=== PATIENT | female | born 1950 | race Two or more races ===

== ENCOUNTER 2017-08-25 07:57 | Inpatient (IN) | payer OTHER, MEDICARE ==
[~2017-08-25 07:57] MED LIST: CEFAZOLIN 2 GM/50 ML (PMX) 50 ML (FOR WT < 120 KG) IVPB; ETOMIDATE 20 MG INJ; TRANEXAMIC ACID 1,000 MG in D5W 100 ML AT CLOSURE X1 IVPB
[2017-08-25] MEDS ORDERED: PROPOFOL 20 ML (08:11)
[2017-08-25] MEDS ORDERED: PROPOFOL 100 ML (08:11)
[2017-08-25] MEDS ORDERED: CEFAZOLIN 1 GM INJ (08:11)
[2017-08-25] MEDS ORDERED: MIDAZOLAM 1 MG/ML 2 ML INJ (08:11)
[2017-08-25] MEDS ORDERED: FENTAnyl 50 MCG/ML VIAL (08:11)
[2017-08-25] MEDS ORDERED: DEXAMETHASONE 4 MG/ML 1 ML INJ (08:11)
[2017-08-25] MEDS ORDERED: NEOSTIGMINE 3 MG/3 ML SYRINGE (08:11)
[2017-08-25] MEDS ORDERED: GLYCOPYRROLATE 0.4 MG INJ (08:11)
[2017-08-25] MEDS ORDERED: ROCURONIUM 50 MG INJ (08:11)
[2017-08-25] MEDS ORDERED: ONDANSETRON 4 MG INJ (08:11)
[2017-08-25] MEDS ORDERED: morphine SULFATE/PF (10 MG/10 ML) INJ (08:12)
[2017-08-25] MEDS ORDERED: ROPIVACAINE 0.5 % 30 ML VIAL (08:12)
[2017-08-25] MEDS ORDERED: SUGAMMADEX SODIUM 200 MG/2 ML VIAL IV (08:22)
[2017-08-25 09:50] LABS: INR 1.01; PROTIME 13.4 Sec (11.9-14.9)
[2017-08-25 09:51] LABS: PARTIAL THROMBOPLASTIN TIME 28.4 Sec (25.0-35.0)
[2017-08-25] MEDS: TRANEXAMIC ACID 1,000 MG in D5W 100 ML AT INCISION X1 IVPB ×2 (10:17→10:48)
[2017-08-25] MEDS: BACITRACIN 50000 UNITS INJ (10:46)
[2017-08-25] MEDS: POLYMYXIN B 500000 UNIT INJ (10:46)
[2017-08-25] MEDS: POLYMYXIN/BACITRACIN 1L IRRIG (10:46)
[2017-08-25] MEDS ORDERED: HYDROmorphONE (0.2 MG/ML) 10ML SYG IV ×3 (11:00)
[2017-08-25] MEDS ORDERED: LABETALOL HCL 20MG INJ IV (11:00)
[2017-08-25] MEDS ORDERED: NALBUPHINE HCL (10 MG/1 ML) INJ IV (11:00)
[2017-08-25] MEDS ORDERED: MEPERIDINE 25 MG INJ IV (11:00)
[2017-08-25] MEDS ORDERED: KETOROLAC 15 MG INJ IV (11:00)
[2017-08-25] MEDS ORDERED: DIPHENHYDRAMINE 50 MG INJ IV ×3 (11:00→12:30)
[2017-08-25] MEDS ORDERED: MIDAZOLAM 1 MG/ML 2 ML INJ IV (11:00)
[2017-08-25] MEDS ORDERED: TRIMETHOBENZAMIDE 100 MG/ML VIAL IM ×3 (11:00→12:30)
[2017-08-25] MEDS ORDERED: EPHEDrine SULFATE 50 MG/5 ML SYG IV (11:00)
[2017-08-25] MEDS ORDERED: OXYCODONE/ACETAMINOPHEN (5/325) TAB PO ×2 (11:00)
[2017-08-25] MEDS ORDERED: ONDANSETRON 4 MG INJ IV ×2 (11:00)
[2017-08-25] MEDS ORDERED: HYDROmorphONE 0.5 MG/0.5 ML SYG IV ×2 (11:00)
[2017-08-25] MEDS ORDERED: IPRATROPIUM (NEB) 0.5 MG/2.5 ML AMP HHN (11:00)
[2017-08-25] MEDS ORDERED: NALOXONE (0.4 MG/ML) INJ IV ×2 (11:00→12:30)
[2017-08-25] MEDS ORDERED: FENTAnyl 50 MCG/ML VIAL IV ×3 (11:00)
[2017-08-25] MEDS ORDERED: ALBUTEROL 0.083% (NEB) 2.5 MG/3 ML AMP HHN (11:00)
[2017-08-25] MEDS ORDERED: hydrALAzine 20 MG INJ IV (11:00)
[2017-08-25] MEDS ORDERED: NA PHOSPHATE/BIPHOS 133 ML ENEMA PR (12:30)
[2017-08-25] MEDS ORDERED: ZOLPIDEM 5 MG TAB PO (12:30)
[2017-08-25] MEDS ORDERED: SENNA/DOCUSATE NA (8.6MG/50MG) TAB PO (12:30)
[2017-08-25] MEDS ORDERED: BISACODYL 10 MG SUPP PR (12:30)
[2017-08-25] MEDS ORDERED: BETHANECHOL 25 MG TAB PO (12:30)
[2017-08-25] MEDS ORDERED: oxyCODONE 5 MG TAB PO (12:30)
[2017-08-25] MEDS ORDERED: MAGNESIUM HYDROXIDE 30ML CUP PO (12:30)
[2017-08-25] MEDS: ONDANSETRON 4 MG INJ IV ×2 (13:50→18:30)
[2017-08-25] MEDS: CEFAZOLIN 1 GM/50 ML (PMX) 50 ML IVPB ×2 (13:50→20:49)
[2017-08-25] MEDS: SOD CHLORIDE 0.9% 1,000 ML IV ×2 (13:51→23:04)
[2017-08-25] MEDS: ASPIRIN (EC) 325 MG TAB PO (13:51)
[2017-08-25] MEDS: DOCUSATE SODIUM 100 MG CAP PO (13:51)
[2017-08-25] MEDS ORDERED: metroNIDAZOLE 500 MG/NS (PMX) 0 ML IVPB (14:02)
[2017-08-25] MEDS ORDERED: GLUCOSE GEL 15 GRAM TUBE BUCCAL (16:00)
[2017-08-25] MEDS ORDERED: GLUCOSE GEL 15 GRAM TUBE PO ×2 (16:00)
[2017-08-25] MEDS ORDERED: GLUCAGON 1 MG INJ IM (16:00)
[2017-08-25] MEDS ORDERED: DEXTROSE 50% 50 ML SYRINGE IV ×2 (16:00)
[2017-08-25] MEDS: metFORMIN 500 MG TAB PO (17:47)
[2017-08-25] MEDS: INSULIN ASPART [NOVOLOG] 3 ML PEN SC ×2 (18:46→21:12)
[2017-08-25] MEDS: CELECOXIB 100 MG CAP PO (20:51)
[2017-08-25] MEDS: GABAPENTIN 100 MG CAP PO (20:51)
[2017-08-25] MEDS: INSULIN GLARGINE [LANtus] 3 ML PEN SC (21:11)
[2017-08-26] MEDS: ONDANSETRON 4 MG INJ IV ×2 (00:42→06:03)
[2017-08-26] MEDS: ACCU-CHEK XX (01:44)
[2017-08-26] MEDS ORDERED: ACCU-CHEK XX (02:00)
[2017-08-26] MEDS: CEFAZOLIN 1 GM/50 ML (PMX) 50 ML IVPB (04:20)
[2017-08-26 05:51] LABS: ADD MAN DIFF? NO
[2017-08-26 05:59] LABS: WHITE BLOOD COUNT 6.7 10^3/ul (4.8-10.8)
[2017-08-26 05:59] LABS: BASOPHILS % 0.3 % (0.0-2.0); EOSINOPHILS % 0.3 % (0.0-7.0); HEMATOCRIT 31.5 % (37.0-47.0); HEMOGLOBIN 9.7 g/dl (12.0-16.0); LYMPHOCYTES # 1.5 10^3/ul (0.8-2.9); LYMPHOCYTES % 22.5 % (15.0-51.0); MEAN CORPUSCULAR HEMOGLOBIN 24.8 pg (29.0-33.0); MEAN CORPUSCULAR HGB CONC 30.8 g/dl (32.0-37.0); MEAN CORPUSCULAR VOLUME 80.6 fl (82.0-101.0); MEAN PLATELET VOLUME 11.4 fl (7.4-10.4); MONOCYTE # 0.8 10^3/ul (0.3-0.9); MONOCYTES % 11.8 % (0.0-11.0); NEUTROPHIL # 4.3 10^3/ul (1.6-7.5); PLATELET COUNT 231 10^3/UL (140-415); RED BLOOD COUNT 3.91 10^6/ul (4.20-5.40); RED CELL DISTRIBUTION WIDTH 17.8 % (11.5-14.5)
[2017-08-26 06:44] LABS: ANION GAP 13 (8-16); BLOOD UREA NITROGEN 17 mg/dl (7-20); CALCIUM 8.4 mg/dl (8.4-10.2); CARBON DIOXIDE 26 mmol/L (21-31); CHLORIDE 107 mmol/L (97-110); CREATININE 0.63 mg/dl (0.44-1.00); GLUCOSE 191 mg/dl (70-220); POTASSIUM 4.3 mmol/L (3.5-5.1); SODIUM 142 mmol/L (135-144)
[2017-08-26 07:48] LABS: ALANINE AMINOTRANSFERASE 25 IU/L (13-69); ALBUMIN 2.9 g/dl (3.3-4.9); ALKALINE PHOSPHATASE 52 IU/L (42-121); ASPARTATE AMINO TRANSFERASE 24 IU/L (15-46); MAGNESIUM 1.5 mg/dl (1.7-2.5); TOTAL PROTEIN 5.9 g/dl (6.1-8.1)
[2017-08-26] MEDS: INSULIN ASPART [NOVOLOG] 3 ML PEN SC ×4 (07:50→21:03)
[2017-08-26 08:18] LABS: THYROID STIMULATING HORMONE 0.871 MIU/L (0.465-4.680)
[2017-08-26] MEDS: CELECOXIB 100 MG CAP PO ×2 (09:37→20:54)
[2017-08-26] MEDS: DOCUSATE SODIUM 100 MG CAP PO ×2 (09:37→20:54)
[2017-08-26] MEDS: ASPIRIN (EC) 325 MG TAB PO (09:37)
[2017-08-26] MEDS: GABAPENTIN 100 MG CAP PO ×2 (09:37→20:54)
[2017-08-26] MEDS: metFORMIN 500 MG TAB PO ×2 (09:38→17:52)
[2017-08-26] MEDS: FERROUS FUMARATE (SR) TAB PO ×2 (09:38→20:54)
[2017-08-26] MEDS: MAGNESIUM SULFATE 2 GM/50 ML 50 ML IVPB (12:36)
[2017-08-26 12:42] LABS: IRON 49 ug/dl (35-150)
[2017-08-26 12:52] LABS: % IRON SATURATION 18 % SAT (22-52); TOTAL IRON BINDING CAPACITY 277 ug/dl (241-421)
[2017-08-26] MEDS: oxyCODONE 5 MG TAB PO ×2 (13:13→21:13)
[2017-08-26] MEDS: INSULIN GLARGINE [LANtus] 3 ML PEN SC (21:02)
[2017-08-26] MEDS: KETOROLAC 15 MG INJ IV (22:50)
[2017-08-27] MEDS: ACCU-CHEK XX (02:20)
[2017-08-27 05:18] LABS: ADD MAN DIFF? NO
[2017-08-27 05:21] LABS: BASOPHILS % 0.3 % (0.0-2.0); EOSINOPHILS # 0.1 10^3/ul (0.0-0.5); EOSINOPHILS % 1.2 % (0.0-7.0); HEMATOCRIT 34.7 % (37.0-47.0); HEMOGLOBIN 10.5 g/dl (12.0-16.0); LYMPHOCYTES # 2.1 10^3/ul (0.8-2.9); LYMPHOCYTES % 28.8 % (15.0-51.0); MEAN CORPUSCULAR HEMOGLOBIN 24.2 pg (29.0-33.0); MEAN CORPUSCULAR HGB CONC 30.3 g/dl (32.0-37.0); MEAN PLATELET VOLUME 10.9 fl (7.4-10.4); MONOCYTE # 0.9 10^3/ul (0.3-0.9); MONOCYTES % 12.5 % (0.0-11.0); NEUTROPHIL # 4.2 10^3/ul (1.6-7.5); NEUTROPHILS % 56.9 % (39.0-77.0); PLATELET COUNT 236 10^3/UL (140-415); RED BLOOD COUNT 4.34 10^6/ul (4.20-5.40); RED CELL DISTRIBUTION WIDTH 17.7 % (11.5-14.5)
[2017-08-27 05:21] LABS: WHITE BLOOD COUNT 7.3 10^3/ul (4.8-10.8)
[2017-08-27 05:42] LABS: ANION GAP 11 (8-16); BLOOD UREA NITROGEN 14 mg/dl (7-20); CALCIUM 8.7 mg/dl (8.4-10.2); CARBON DIOXIDE 29 mmol/L (21-31); CHLORIDE 106 mmol/L (97-110); CREATININE 0.58 mg/dl (0.44-1.00); GLUCOSE 135 mg/dl (70-220); POTASSIUM 4.4 mmol/L (3.5-5.1); SODIUM 142 mmol/L (135-144)
[2017-08-27] MEDS: PANTOPRAZOLE (EC) 40 MG TAB PO (06:00)
[2017-08-27] MEDS: INSULIN ASPART [NOVOLOG] 3 ML PEN SC ×2 (07:50→13:12)
[2017-08-27] MEDS: FERROUS FUMARATE (SR) TAB PO (09:01)
[2017-08-27] MEDS: metFORMIN 500 MG TAB PO (09:01)
[2017-08-27] MEDS: ASPIRIN (EC) 325 MG TAB PO (09:01)
[2017-08-27] MEDS: GABAPENTIN 100 MG CAP PO (09:02)
[2017-08-27] MEDS: CELECOXIB 100 MG CAP PO (09:02)
[2017-08-27] MEDS: DOCUSATE SODIUM 100 MG CAP PO (09:02)
[2017-08-27] MEDS: oxyCODONE 5 MG TAB PO ×2 (09:06→14:39)
== END 2017-08-27 17:11 | DRG 470 ==
LOC: REC 07:57 → MS1 14:36
PROVIDERS: Orthopaedic Surgery
PROC: 0SRD0J9 Replacement of Left Knee Joint with Synthetic Substitute, Cemented, Open Approach (ICD-10-PCS; principal; 2017-08-25 09:28)
DX: M17.12 Unilateral primary osteoarthritis, left knee (principal); E83.42 Hypomagnesemia; I10 Essential (primary) hypertension; D64.9 Anemia, unspecified; E11.9 Type 2 diabetes mellitus without complications; E78.5 Hyperlipidemia, unspecified; E66.9 Obesity, unspecified; Z98.1 Arthrodesis status; Z68.38 Body mass index [BMI] 38.0-38.9, adult
CPT/HCPCS: 73560; 80048; 80076; 82962; 83036; 83540; 83735; 84443; 85025; 85610; 85730; 86850; 86900; 86901; 88304; 88311; 93971; 97110; 97116; 97162; 97165; 97530; 97535